=== PATIENT | female | born 1955 | race Caucasian/White ===

== ENCOUNTER → 2020-12-27 | Outpatient (CLI) | payer MEDICARE ==
[2015-11-13 19:37] VITALS: BP 128/71
--- NOTE | 2020-12-27 15:47 | RAD ---
DATE: December 27, 2020 EXAM: MAMMO MAGDA SCREENING BILATERAL HISTORY: Screening study. COMPARISON: 2010 This study was interpreted with the benefit of Computerized Aided Detection (CAD). FINDINGS: Breast Density: HETERO The breast parenchyma is heterogenously dense, which could reduce sensitivity of mammography. Breast parenchyma level C.. There is a new small nodule seen medially within the mid aspect of the right breast at the 3 to 4:00 position. On the left side, there is a new medial retroareolar nodule. Recommend bilateral sonography. No architectural distortion or clustering of pleomorphic microcalcifications are evident on either side. IMPRESSION: New bilateral breast nodules. Recommend bilateral breast sonography. BI-RADS CATEGORY: 0 INCOMPLETE: NEEDS ADDITIONAL IMAGING EVALUATION AND/OR PRIOR MAMMOGRAMS FOR COMPARISON. RECOMMENDED FOLLOW-UP: ADD ADDITIONAL IMAGING PQRS compliance statement: Patient information was entered into a reminder system with a target due date now for the next imaging study. Mammography is a sensitive method for finding small breast cancers, but it does not detect them all and is not a substitute for careful clinical examination. A negative mammogram does not negate a clinically suspicious finding and should not result in delay in biopsying a clinically suspicious abnormality. "Our facility is accredited by the [employer] Mammography Program." The patient's breast density may affect the ability of mammography to detect breast cancer. There are 4 categories of breast density, A, B, C and D. Breast density A means that most of the breast tissue is replaced with adipose tissue and therefore is not dense. Breast density B means that the breast tissue is mildly dense and scattered. Breast density C means that the breast tissue is heterogeneously dense. Breast density D means that the breast tissue is very dense. Breast densities especially C and D may decrease the sensitivity of mammography to detect breast cancer. Therefore, the patient may benefit from 3-D breast mammography (3D breast tomography) as a part of their screening mammogram. Insurance may or may not pay for this additional imaging. The patient's breast density based on today's mammogram is category C.
== END ==
LOC: MAMMO 13:57
PROVIDERS: ATTEND Family Medicine
DX: Z12.31 Encounter for screening mammogram for malignant neoplasm of breast (principal); N64.89 Other specified disorders of breast
CPT/HCPCS: 77063; 77067

== ENCOUNTER → 2021-01-02 | Outpatient (CLI) | payer MEDICARE ==
[2015-11-13 19:37] VITALS: BP 128/71
--- NOTE | 2021-01-02 12:56 | RAD ---
EXAM: DUAL ENERGY X-RAY ABSORPTIOMETRY (DEXA). HISTORY: Postmenopausal screening. FINDINGS: The lowest measured T-score is -1.3 in the lumbar spine, based on a bone mineral density of 1.019 g/cm^2. Refer to the worksheets for full detail. No comparison examinations are available. IMPRESSION: 1. Low bone mass. Bone mineral density yields a T-score between -1.0 and -2.5. Fracture risk is incre ased. 2. FRAX report: Not calculated. METHODOLOGY: Dual energy x-ray absorptiometry was performed to measure bone mineral density. The foll owing analysis is based on the 2019 Official Positions of the International Society for Clinical Dens itometry: Measurements of the hips and the average of L1-L4 are preferred. When the spine and/or hip cannot be feasibly measured or interpreted, or in the setting of hyperparathyroidism, distal radial bone minera l density may be measured. The lumbar spine T-score is based on the average bone mineral density of L1-L4. In the setting of art ifact or anatomic abnormality, some lumbar levels may be excluded, and the remaining levels used for calculation. A single lumbar level is not used for diagnosis, and if only a single level is available for assessment, another anatomic site will be used to assign a diagnosis. The hip T-score is based on the bone mineral density measurement of the femoral neck or total proxima l femur of either side, whichever is lowest. Bilateral mean values are not used for diagnosis. The forearm T-score is derived from 33% of the distal radius of the nondominant forearm. Electronically signed by: Kaylie Santos MD (01/02/2021 12:53 PM) [id number]
== END ==
LOC: DXRAD 11:37
PROVIDERS: ATTEND Family Medicine
DX: Z78.0 Asymptomatic menopausal state (principal); M89.9 Disorder of bone, unspecified
CPT/HCPCS: 77080

== ENCOUNTER → 2021-01-10 | Outpatient (CLI) | payer MEDICARE ==
[2015-11-13 19:37] VITALS: BP 128/71
--- NOTE | 2021-01-10 15:41 | RAD ---
EXAM: Bilateral breast sonogram. HISTORY: 65-year-old female presents for evaluation of nodularity within both breasts demonstrated on a mammogram dated 12/27/2020. TECHNIQUE: Sonographic imaging of both breasts targeted to sites of mammographic nodularity was perfo rmed. COMPARISON: Mammogram dated 12/27/2020. FINDINGS: Sonographic imaging of the right breast demonstrates a 4 mm simple cyst at the 4:00 positio n 5 cm from the nipple, corresponding with the mammographic finding of concern. There is no suspiciou s sonographic finding within the visualized right breast. Static imaging of the left breast demonstrates a 4 mm nonvascular hypoechoic lesion with internal ech oes at the 9:00 position 1 cm from the nipple. This is taller than wide on intracranial images. Howev er, this is wider than tall on radial images. The imaging appearance favors a cyst with internal debr is. This corresponds with the mammographic finding of concern. There is no suspicious finding within the visualized left breast. IMPRESSION: 1. 4 mm benign simple cyst at the 4:00 position of the right breast 5 cm from the nipple and benign c omplicated cyst with internal debris at the 9:00 position of the left breast 1 cm from nipple. This c orrespond with areas of nodularity on the recent mammogram. There is no persistent suspicious finding . 2. BI-RADS Category 2: Benign finding(s). Annual mammography is recommended. Electronically signed by: Kaylie Santos MD (01/10/2021 3:38 PM) [id number]
== END ==
LOC: US 14:58
PROVIDERS: ATTEND Family Medicine
DX: R92.8 Other abnormal and inconclusive findings on diagnostic imaging of breast (principal); N60.01 Solitary cyst of right breast
CPT/HCPCS: 76641